=== PATIENT | male | born 1965 | race Caucasian/White ===

== ENCOUNTER → 2023-08-15 06:41 | Outpatient (REF) | payer OTHER, SELFPAY | LOC: RSP 06:41 | PROVIDERS: ATTENDING PHYSICIAN Internal Medicine; FAMILY PHYSICIAN Family Medicine | DX: R07.89 Other chest pain (principal); F17.210 Nicotine dependence, cigarettes, uncomplicated | CPT/HCPCS: 94010 ==

== ENCOUNTER 2024-09-05 17:22 | Emergency (ER) | payer OTHER, SELFPAY ==
[2024-09-05] VITALS (20 sets, daily range): BP systolic 84–106; BP diastolic 62–77; BMI 32.6
[2024-09-05 18:38] LABS: % Basophils 0.5 % (0-2); % Eosinophils 1.3 % (0-6); % Immature Granulocytes 0.7 % (0-0.5); % Lymphocytes 32.4 % (20.5-51.1); % Monocytes 9.4 % (1.7-9.3); % Neutrophils 55.7 % (42.2-75.2); Absolute Basophils 0.1 10^3/uL (0-0.2); Absolute Eosinophils 0.2 10^3/uL (0-0.7); Absolute Immature Granulocytes 0.1 10^3/uL (0-0.05); Absolute Lymphocytes 3.8 10^3/uL (1.2-3.4); Absolute Monocytes 1.1 10^3/uL (0.1-0.6); Absolute Neutrophils 6.5 10^3/uL (1.4-6.5); Hematocrit 46.8 % (39.0-52.0); Hemoglobin 17.2 g/dL (13.0-18.0); Mean Corp Hgb Conc. 36.8 g/dL (33.0-37.0); Mean Corpuscular Hgb 32.6 pg (27.0-31.0); Mean Corpuscular Volume 88.8 fL (80.0-94.0); Mean Platelet Volume 8.9 fL (7.4-10.4); Nucleated Red Blood Cells % 0 % (-); Platelet Count 287 10^3/uL (130-400); Red Blood Cell Count 5.27 10^6/uL (4.70-6.10); Red Cell Dist. Width 12.3 % (11.5-14.5); White Blood Cell Count 11.6 10^3/uL (4.8-10.8)
--- NOTE | 2024-09-05 18:45 | ED.GENMED ---
History of Present Illness
<Ranjana Galindo PA-C - Last Filed: 09/06/24 09:30>
General
Chief Complaint: Heart Rate Problem
Source: patient
Exam Limitations: none
Time Seen by Provider: 09/05/24 18:01
History of Present Illness
History of Present Illness:
59yoM with a history of atrial fibrillation, hypertension, and hyperlipidemia presenting for evaluation palpitations. Symptoms began about 48 hours ago. He states he suddenly felt like his heart was racing and his heart rate was elevated around
150. He states he is back in A-fib. He was taken off of his Eliquis about a year ago and started to take baby aspirin daily. He has been speaking with his PCP and he was restarted on Eliquis yesterday and has taken 2 doses thus far. His PCP
should not be in A-fib long and was sent to the ED for evaluation. Patient does report some episodes of indigestion today while walking. He is also having intermittent lightheadedness but denies any syncope. No shortness of breath.
Past History
<Ranjana Galindo PA-C - Last Filed: 09/06/24 09:30>
Past History
ED Past Medical History: Arrthythmia, HTN and Hypercholesterolemia; Negative CVA
ED Past Surgical History: Other (Deviated septum surgery, wisdom tooth removal)
Social History
Tobacco: Smoker
Alcohol: None
Drug: None
Personal:
Living: with family
Employment: Employed
Family History
Family History: Other (Noncontributory)
Phy Exam
<Ranjana Galindo PA-C - Last Filed: 09/06/24 09:30>
General Physical Exam
General Presentation: well appearing and no apparent distress
General age: appears stated age
General Skin: warm and dry
General Habitus: normal
General Mental: alert
ENT Exam
ENT Exam: normocephalic
Cardiovascular Exam
Cardiovascular Exam: no edema and irregularly irregular
Pulmonary Exam
Pulmonary Exam: lungs clear, no respiratory distress, no rales, no crackles, no rhonchi and no wheezing
Neurological Exam
Neurological Exam: alert
Smiley Coma Scale
Eye Opening: Spontaneous
Verbal Response: Oriented
Motor Response: Obeys Commands
GCS Total Score: 15
Skin Exam
Skin Exam: normal color and warm/dry
Psychiatric Exam
Psychiatric Exam: normal mood/affect
Course
<Ranjana Galindo PA-C - Last Filed: 09/06/24 09:30>
Orders/Labs/Results
Orders:
Orders
09/05/24 17:24
Electrocardiogram (*1) Urgent
Reason for Study: Atrial Fibrillation
09/05/24 17:25
EKG- Treatment ONCE
09/05/24 18:26
CMP [Comprehensive Metabolic Panel] Urgent
Complete Blood Count/With Diff Urgent
TSH Reflex To Free T4 Urgent
Troponin I Urgent
0.9% Sodium Chloride 1000 ml [Nss] 1,000 ml IV BOLUS
Diltiazem HCl [Cardizem] 10 mg IV NOW STA
09/05/24 18:28
Apixaban [Eliquis] 5 mg PO ONCE ONE
09/05/24 18:41
Diltiazem 125 mg/125 ml Nss [Cardizem] 125 mg in 125 ml .ROUTE .STK-MED
09/05/24 18:45
Diltiazem 125 mg/125 ml Nss [Cardizem] 125 mg in 125 ml IV PER PROTOCOL
Initial dose in mg/hr, then titrate:: 5
Titrate to keep:: Heart rate 80-100 bpm
Titrate by mg/hr:: 5 mg/hr
Frequency of titrations (minutes):: 15
Maximum dose in mg/hr:: 15
09/05/24 20:24
Metoprolol [Lopressor] 25 mg PO NOW STA
Abnormal Lab Results
09/05/24
18:26
WBC 11.6 H 10^3/uL
(4.8-10.8)
MCH 32.6 H pg
(27.0-31.0)
Abs Immat Gran (auto) 0.1 H 10^3/uL
(0-0.05)
Absolute Lymphs (auto) 3.8 H 10^3/uL
(1.2-3.4)
Absolute Monos (auto) 1.1 H 10^3/uL
(0.1-0.6)
Immature Gran % 0.7 H %
(0-0.5)
Monocytes % 9.4 H %
(1.7-9.3)
Chloride 109 H mmol/L
(98-107)
BUN 21 H mg/dl
(9-20)
Total Protein 6.1 L g/dl
(6.3-8.2)
09/05/24 18:26
09/05/24 18:26
Vital Signs
Initial and Last Documented VS:
Initial Vital Signs
Temp Pulse Resp BP Pulse Ox
98.5 F 95 18 100/72 97
09/05/24 17:44 09/05/24 17:44 09/05/24 17:44 09/05/24 17:44 09/05/24 17:44
Last Documented Vital Signs
Temp Pulse Resp BP Pulse Ox
98.5 F 78 28 103/63 95
09/05/24 17:44 09/05/24 20:31 09/05/24 20:30 09/05/24 20:31 09/05/24 20:30
Philiplt;Kenneth Huerta MD - Last Filed: 09/05/24 21:26>
Orders/Labs/Results
Orders:
Orders
09/05/24 17:24
Electrocardiogram (*1) Urgent
Reason for Study: Atrial Fibrillation
09/05/24 17:25
EKG- Treatment ONCE
09/05/24 18:26
CMP [Comprehensive Metabolic Panel] Urgent
Complete Blood Count/With Diff Urgent
TSH Reflex To Free T4 Urgent
Troponin I Urgent
0.9% Sodium Chloride 1000 ml [Nss] 1,000 ml IV BOLUS
Diltiazem HCl [Cardizem] 10 mg IV NOW STA
09/05/24 18:28
Apixaban [Eliquis] 5 mg PO ONCE ONE
09/05/24 18:41
Diltiazem 125 mg/125 ml Nss [Cardizem] 125 mg in 125 ml .ROUTE .STK-MED
09/05/24 18:45
Diltiazem 125 mg/125 ml Nss [Cardizem] 125 mg in 125 ml IV PER PROTOCOL
Initial dose in mg/hr, then titrate:: 5
Titrate to keep:: Heart rate 80-100 bpm
Titrate by mg/hr:: 5 mg/hr
Frequency of titrations (minutes):: 15
Maximum dose in mg/hr:: 15
09/05/24 20:24
Metoprolol [Lopressor] 25 mg PO NOW STA
Abnormal Lab Results
09/05/24
18:26
WBC 11.6 H 10^3/uL
(4.8-10.8)
MCH 32.6 H pg
(27.0-31.0)
Abs Immat Gran (auto) 0.1 H 10^3/uL
(0-0.05)
Absolute Lymphs (auto) 3.8 H 10^3/uL
(1.2-3.4)
Absolute Monos (auto) 1.1 H 10^3/uL
(0.1-0.6)
Immature Gran % 0.7 H %
(0-0.5)
Monocytes % 9.4 H %
(1.7-9.3)
Chloride 109 H mmol/L
(98-107)
BUN 21 H mg/dl
(9-20)
Total Protein 6.1 L g/dl
(6.3-8.2)
09/05/24 18:26
09/05/24 18:26
Vital Signs
Initial and Last Documented VS:
Initial Vital Signs
Temp Pulse Resp BP Pulse Ox
98.5 F 95 18 100/72 97
09/05/24 17:44 09/05/24 17:44 09/05/24 17:44 09/05/24 17:44 09/05/24 17:44
Last Documented Vital Signs
Temp Pulse Resp BP Pulse Ox
98.5 F 78 28 103/63 95
09/05/24 17:44 09/05/24 20:31 09/05/24 20:30 09/05/24 20:31 09/05/24 20:30
<Ranjana Galindo PA-C - Last Filed: 09/06/24 09:30>
MDM/Problems Addressed
Differential Diagnosis Includes:
59yoM here with palpitations x 2 days. Feels like he is back in afib. Hx of afib. Off Eliquis x 1 year, restarted yesterday. C/o intermittent indigestion throughout the day. Relatively asymptomatic currently. HR in the 110s during exam. He is well
appearing in no distress. Differential diagnosis includes but is not limited to: atrial fibrillation, CHF, ACS
Initial ED plan: EKG obtained in triage confirms afib. Check cardiac labs and TSH. Will initiate Cardizem to see if patient converts to NSR.
<Ranjana Galindo PA-C - Last Filed: 09/06/24 09:30>
*EKG
Interpreted by ED Provider?: Yes
EKG Intrepretation Date: 09/05/24
Heart Rate: 106
Rate: tachycardiac
Rhythm: a-fib
Napoleon: normal axis
Interval: normal interval
QRS Pattern: normal QRS
Ischemia: no ischemia
*Critical Care Note
Total Time (30-74mins, 75-104mins- exclusive of procedures): Not Applicable
<Ranjana Galindo PA-C - Last Filed: 09/06/24 09:30>
Update Note
Update Note:
Labs overall unremarkable including normal electrolytes, TSH, and troponin. HR in the 70s on reassessment and he remains in afib. Case discussed with Dr. Blackwell who evaluated patient at bedside. No need for cardioversion at this time. Plan is to
increase metoprolol from 25mg daily to 25mg BID and have close outpatient f/u with his cardiology team. Patient in agreement with plan. ED return precautions reviewed. He was discharged in stable condition.
ED Attending Note
<Ranjaan Galindo PA-C - Last Filed: 09/06/24 09:30>
-
Portions of this chart may have been created with voice recognition software.� Occasional wrong word or��sound alike� substitutions may have occurred due to the inherent limitations of voice recognition software.
<Kenneth Huerta MD - Last Filed: 09/05/24 21:26>
ED Attending Note
Patient seen and examined by attending physician: Yes
ED Attending Note:
Patient presents to ED secondary to 3-day history of palpitations, with elevated heart rate noted on his Apple Watch. This afternoon, while he was walking, he experienced 'heartburn' sensation, which resolved shortly. Since then, patient has had
intermittent symptoms of palpitations with heartburn sensation. Denies chest pain. Denies dizziness. Denies nausea or vomiting. Denies diaphoresis. Patient's medical history is significant for previous history of atrial fibrillation, requiring
cardioversion as well as being on Eliquis, which has been discontinued. Denies recent illness. Denies recent travel. Denies leg pain or swelling. Denies back pain.
Physical Exam
General: no apparent distress, not acutely ill. afebrile. overweight
Head: nc/at. eomi
Neck: supple. normal range of motion.
Heart: irregularly irregular. tachycardic. no murmur.
Lungs: no acute respiratory distress. clear bilaterally
Abdomen: normal bowel sounds. not tender.
Neuro: alert and oriented x 3. no focal neurological deficits
Skin: no rash
Psychiatric: well kept. interactive and cooperative
Extremities: no edema. no calf tenderness.
History, exam, and EKG, consistent with recurrent rapid atrial fibrillation.
Blood work within normal limits. Heart rate improved with treatment via IV fluids, Cardizem bolus followed by Cardizem infusion.
Patient evaluated at bedside by , cardiology. Feels that patient does not require cardioversion at this time. Recommends increasing metoprolol to twice daily, along with urgent outpatient follow-up, for formal EP study. Until then,
patient will continue Eliquis. Patient expressed understanding at time of discharge. Cardiology office will contact patient at home with an appointment.
Critical care statement: A total of 40 minutes of critical care time was provided for this patient. This includes management of unstable vital signs, evaluation of the patient at bedside, reviewing the patient's pertinent medical records, discussion
with consultants, review of old EKGs and review of pertinent medical records. This time with separate from time utilized to perform the aforementioned documented procedures
Discharge Plan
Departure
Patient Disposition: Home (Routine Discharge)
Date of Disposition: 09/05/24
Time of Disposition: 20:23
Patient with high blood pressure during this ER visit?: No
Discharge Problem:
Atrial fibrillation
Instructions: Atrial Fibrillation (DC)
Prescriptions:
No Action
tamsulosin 0.4 MG capsule
0.4 mg PO QPM
lisinopril 20 MG tablet
20 mg PO BID
atorvastatin 40 MG tablet
40 mg PO QPM Qty: 90 3RF
aspirin 81 MG tablet,delayed release (DR/EC)
81 mg PO DAILY Qty: 30 0RF
fenofibrate nanocrystallized 48 mg Tablet
48 mg PO DAILY
Referrals:
Anand Blackwell MD [Active] -
Activity Restrictions/Additional Instructions:
Increase metoprolol to twice a day. Continue taking Eliquis.
Please follow-up closely with your licensed electrician. Return to the ER with any new or worsening symptoms including uncontrolled heart rate.
Interventions
Interventions:
*Risk Screen - Suicide Last Done: 09/05/24 17:44
*General Assessment Last Done: 09/05/24 18:17
*Neglect/Abuse Screening Last Done: 09/05/24 17:44
*ED- Fall Risk Assessment Last Done: 09/05/24 18:17
*ED COVID-19 Vaccine History Last Done: 09/05/24 17:44
*Nursing Disposition Last Done: 09/05/24 20:42
ED- Pulmonary Assessment Last Done: 09/05/24 18:17
ED- Cardiac Assessment Last Done: 09/05/24 18:17
Discharge Date and Time
Discharge Date/Time: 09/05/24 20:43
Print Language: CAPE VERDEAN
[2024-09-05] MEDS: ELIQUIS 5 MG PO (18:46)
[2024-09-05] MEDS: NSS 1000 IV (18:46)
[2024-09-05] MEDS: CARDIZEM 10 MG IV (18:47)
[2024-09-05] MEDS: CARDIZEM 125 IV (18:47)
[2024-09-05 19:01] LABS: ALT (SGPT) 25 U/L (0-50); AST (SGOT) 21 U/L (17-59); Albumin 3.8 g/dl (3.5-5.0); Alkaline Phosphatase 43 U/L (38-126); Blood Urea Nitrogen 21 mg/dl (9-20); Calcium 9.5 mg/dl (8.4-10.2); Carbon Dioxide 24 mmol/L (22-30); Chloride 109 mmol/L (98-107); Estimated Creatinine Clearance 104 ml/min; Glucose 84 mg/dl (70-99); Sodium 141 mmol/L (135-145); Total Bilirubin 0.8 mg/dl (0.2-1.3); Total Protein 6.1 g/dl (6.3-8.2); eGFR > 60.00
[2024-09-05 19:05] LABS: Troponin I < 0.012 ng/ml
[2024-09-05 19:31] LABS: TSH Reflex To Free T4 2.09 uIU/ml (0.47-4.68)
[2024-09-05] MEDS: LOPRESSOR 25 MG PO (20:31)
== END 2024-09-05 20:43 | disposition home or self-care (01) ==
LOC: EMR 17:22
PROVIDERS: EMERGENCY PHYSICIAN Emergency Medicine; FAMILY PHYSICIAN Family Medicine
DX: I48.91 Unspecified atrial fibrillation (principal); I10 Essential (primary) hypertension; E78.00 Pure hypercholesterolemia, unspecified; F17.200 Nicotine dependence, unspecified, uncomplicated; Z79.01 Long term (current) use of anticoagulants
CPT/HCPCS: 99283; 96374; 96376; 96361; 80053; 84443; 84484; 85025; 93005

== ENCOUNTER → 2024-09-27 08:14 | Outpatient (REF) | payer OTHER, SELFPAY | LOC: HWRCS 08:14 | PROVIDERS: ATTENDING PHYSICIAN Internal Medicine Cardiovascular Disease; FAMILY PHYSICIAN Family Medicine | DX: I48.0 Paroxysmal atrial fibrillation (principal) | CPT/HCPCS: 93306 ==

== ENCOUNTER 2024-10-29 06:07 | Day surgery (SDC) | payer OTHER, SELFPAY ==
[2024-10-15 10:20] VITALS: BMI 33.8
[2024-10-15 11:03] LABS: % Basophils 0.9 % (0-2); % Eosinophils 1.9 % (0-6); % Immature Granulocytes 0.3 % (0-0.5); % Lymphocytes 23.2 % (20.5-51.1); % Monocytes 9.4 % (1.7-9.3); % Neutrophils 64.3 % (42.2-75.2); Absolute Basophils 0.1 10^3/uL (0-0.2); Absolute Eosinophils 0.2 10^3/uL (0-0.7); Absolute Lymphocytes 2.2 10^3/uL (1.2-3.4); Absolute Monocytes 0.9 10^3/uL (0.1-0.6); Absolute Neutrophils 6.1 10^3/uL (1.4-6.5); Hematocrit 47.4 % (39.0-52.0); Hemoglobin 17.3 g/dL (13.0-18.0); Mean Corp Hgb Conc. 36.5 g/dL (33.0-37.0); Mean Corpuscular Hgb 32.6 pg (27.0-31.0); Mean Corpuscular Volume 89.4 fL (80.0-94.0); Mean Platelet Volume 9.5 fL (7.4-10.4); Nucleated Red Blood Cells % 0 % (-); Platelet Count 286 10^3/uL (130-400); Red Cell Dist. Width 12.6 % (11.5-14.5); White Blood Cell Count 9.5 10^3/uL (4.8-10.8)
[2024-10-15 11:38] LABS: ALT (SGPT) 28 U/L (0-50); AST (SGOT) 25 U/L (17-59); Albumin 4.8 g/dl (3.5-5.0); Alkaline Phosphatase 43 U/L (38-126); Blood Urea Nitrogen 14 mg/dl (9-20); Calcium 9.3 mg/dl (8.4-10.2); Carbon Dioxide 24 mmol/L (22-30); Chloride 109 mmol/L (98-107); Estimated Creatinine Clearance 103 ml/min; Glucose 89 mg/dl (70-99); Potassium 4.3 mmol/L (3.5-5.1); Sodium 140 mmol/L (135-145); Total Bilirubin 0.7 mg/dl (0.2-1.3); eGFR > 60.00
[2024-10-29] VITALS (12 sets, daily range): BP systolic 102–132; BP diastolic 72–91
[2024-10-29 08:41] LABS: ACT-LR - POC 335 Seconds (116-155)
[2024-10-29 09:02] LABS: ACT-LR - POC 334 Seconds (116-155)
--- NOTE | 2024-10-29 09:28 | ITS.CL.ABL ---
Train Control Electronic Technician - Ablation
Ablation
Procedure Report:
AFIB ablation:
Mr. Justin is a very pleasant 59 yr old gentleman with medical history significant for symptomatic paroxysmal atrial fibrillation is here in the EP lab for atrial fibrillation ablation
Date of Procedure:
10/29/2024
Indications:
Symptomatic paroxysmal atrial fibrillation
Pre-Operative Diagnosis:
Paroxysmal atrial fibrillation
Post-Operative Diagnosis:
Paroxysmal atrial fibrillation
Procedure Performed:
Atrial fibrillation ablation with wide area circumferential ablation (WACA) approach for pulmonary vein isolation
Performing Physician:
Anand Blackwell MD
Assistants:
EP staff
Anesthesia:
See anesthesia records
Detailed Description of the Procedure:
Written informed consent was obtained from the patient after a full explanation of the risks and benefits of the procedure including the risks of sedation and anesthesia.
The patient was brought to the electrophysiology laboratory in stable condition in fasting state. Continuous electrocardiographic and hemodynamic monitoring was initiated.
The initial rhythm was sinus rhythm.
The procedure site was meticulously prepared with surgical scrub and allowed to dry with no pooling. Sterile draping was applied to cover the procedure site. The image intensifier was draped with sterile bag and positioned over the patient. After
infusion of local anesthetic, vascular access was obtained under ultrasound guidance and sheaths were placed over guide wire as detailed below.
The images of the ultrasound of the femoral vessels were stored in patient chart.
Sheath and Catheter Placement:
In the right femoral vein, a 10-Tristanian sheath was placed under ultrasound guidance for use during the ablation procedure. In the right femoral vein, another 9-Fr sheath was placed for use during intracardiac echo procedure.
The sheaths were upgraded as needed during the case. Intracardiac catheters were positioned using direct fluoroscopic guidance.� ICE catheter was placed in RA. The following catheters / sheaths were placed
Sheaths:
��������� Agilis sheath in right femoral vein upgraded from 10Fr in right femoral vein
��������� 9Fr in right femoral vein
Catheters:
��������� The Affera Sphere 9 catheter -bidirectional D/F� - at locations of HRA, LA and LV.
��������� ICE catheter -AccuNav -� at locations of RA, SVC, and RV.
Heparin was initiated after the access was obtained.
Intracardiac ECHO:
An 8-Tristanian AcuNav intracardiac ECHO (ICE) probe was advanced through the 9-Tristanian sheath in the left femoral vein into the right atrium under fluoroscopic and ICE ultrasound image guidance and a baseline ECHO study was performed. The left atrial
size was mildly dilated. There was trace tricuspid regurgitation. The aortic valve was grossly normal. There was normal left ventricular size and function. There is a trace pericardial effusion. The LAWSON has baseline normal velocities. The pulmonary
had good flow identified.
During the procedure, ICE was used for monitoring of complications, guidance of trans-septal puncture, monitor the catheter position and tracking ablation lesions. No change in the pericardial space noted throughout the procedure.
Trans-septal Puncture:
Heparin was initiated and infused to maintain appropriate ACT. A J-tipped guidewire was advanced through into the superior vena cava under fluoroscopic and ICE guidance. The Agilis sheath with BRK needle was advanced into the superior vena cava over
the guidewire. The apparatus was withdrawn until it was in contact with the fossa ovalis. The position was adjusted based on fluoroscopy and ultrasound images from ICE. Under fluoroscopic, hemodynamic and ICE ultrasound guidance, left atrium was
cannulated by advancing the needle. Once atrial septum was cannulated, the needle was pulled back and the guide wire was advanced through the needle into the left atrium. The guide wire was advanced into the left superior pulmonary vein. Both the
sheath and the dilator was advanced into the left atrium. The dilator with the needle was withdrawn. Blood was aspirated from the Agilis sheath and arterial blood confirmed. The sheath was flushed. Saline injection noted into the left atrium on ICE.
The waveform of the LA pressure was recorded. The mapping catheter was advanced in the Agilis sheath into the left pulmonary vein.
3D Electroanatomic Mapping:
Using the Sphere 9 Affera catheter advanced through Agilis sheath into the left atrium, an electroanatomic map (EAM) of the left atrium was created using [employer]� mapping system with Prism-1 software. The map was used for localization of catheter
position and tacking of ablation lesions. The EAM of the left atrium showed a total of 4 PVs with a two left and two right sided pulmonary veins with all electrically connected to the body the LA. It showed no significant scar on the posterior wall
of the LA. The LA was dilated in size.
Following the EAM, preparation were made for ablation.
Ablation:
Ablation # 2: Pulmonary vein Isolation:
Glycopyrrolate 0.2 mg was given prior to the placement of ablation.
Pulsed field ablation was performed using an open irrigation, bidirectional, contact sensing, dual energy ablation catheter (Your Tributea sphere -9) by completing the circumferential lesions around the left and right pulmonary veins achieving pulmonary
vein isolation.
Confirmation of the PVI and bidirectional block:
Following achievement of entrance block at the pulmonary veins, pacing from the Sphere 9 affera catheter in each of the four veins at 20 milliamps for 4 milliseconds showed entrance and exit block.
The LA was mapped with The Your Tributea� mapping system with Prism-1 software in sinus rhythm confirming the line of block at the ablation lesions lines.
�
EP study:
Sinus Node Function: The sinus node functions are within acceptable normal range.
Atrioventricular Jenny Function: �Normal AV conduction noted with normal AV jenny conduction time.
Procedure End
ICE study was done again that showed no epicardial accumulation. No complications noted.
Following the completion of the EP study, catheters were removed. Protamine 30 mg was given at the end of the procedure and ACT was checked repeatedly. The sheaths were removed and hemostasis achieved with Figure of 8 suture and manual compression
after acceptable ACT is achieved.
Left atrial Pressure:
Pre-Procedure: Mean LA pressure was 10mmHg
Post-Procedure: Mean LA pressure was 11mmHg
Post-Procedure: Mean RA pressure was 6mmHg
Estimated Blood loss:
<10 cc
Specimens Removed:
None.
Implants / Devices:
None
Urine output:
None
Packs / Drains/ Tubes:
None
Instrument / Sponge Count Correct:
Yes
Complications of the Procedure:
None
Condition of Patient at Time of Transfer:
Hemodynamically stable with no neurological or vascular compromise.
Summary:
��������� Successful atrial fibrillation ablation with circumferential bidirectional line of block at pulmonary vein antra (Pulmonary vein isolation)
Figures from the Procedure:
Figure 1: The electroanatomic mapping (EAM) of the left atrium with bipolar voltage (purple indicates normal electrical activity with red as no myocardial muscle electric activity indicating a line of block or scar.
[2024-10-29] MEDS: ANESTHETIC LOZENGE 1 LOZENGE PO (13:34)
--- NOTE | 2024-10-29 14:07 | W.PN.UPDATE ---
Update Note
Progress Note Update
Pt seen post PFA. Right groin site without ht/bleeding, oob ambulating, urinating without difficulty. Post EKG NSR 67, no acute changes. Resume eliquis tonight at usul time. Followup at [facility] as scheduled. Home today if groin site/tele remain stable.
== END 2024-10-29 14:15 | disposition home or self-care (01) ==
LOC: CATH 06:07
PROVIDERS: ATTENDING PHYSICIAN Internal Medicine Cardiovascular Disease; FAMILY PHYSICIAN Family Medicine; OTHER PHYSICIAN Internal Medicine
DX: I48.0 Paroxysmal atrial fibrillation (principal); E66.9 Obesity, unspecified; E78.5 Hyperlipidemia, unspecified; G47.33 Obstructive sleep apnea (adult) (pediatric); I10 Essential (primary) hypertension; I25.10 Atherosclerotic heart disease of native coronary artery without angina pectoris; K76.0 Fatty (change of) liver, not elsewhere classified; N40.0 Benign prostatic hyperplasia without lower urinary tract symptoms; Z72.0 Tobacco use; Z79.01 Long term (current) use of anticoagulants; Z79.899 Other long term (current) drug therapy; Z98.890 Other specified postprocedural states; Z79.85 Long-term (current) use of injectable non-insulin antidiabetic drugs; Z68.33 Body mass index [BMI] 33.0-33.9, adult
CPT/HCPCS: C1769; C1733; C1766; C1894; C1892; C1759; 36415; 80053; 85025; 85347; 86850; 86900; 86901; 93005; 93656

== ENCOUNTER → 2024-12-09 14:41 | Outpatient (REF) | payer OTHER, SELFPAY | LOC: HWRAD 14:41 | PROVIDERS: ATTENDING PHYSICIAN Urology; FAMILY PHYSICIAN Family Medicine | DX: N20.0 Calculus of kidney (principal) | CPT/HCPCS: 74176 ==

== ENCOUNTER → 2025-02-03 15:54 | Outpatient (REF) | payer OTHER, SELFPAY | LOC: RAD 15:54 | PROVIDERS: ATTENDING PHYSICIAN Nurse Practitioner Adult Health; FAMILY PHYSICIAN Family Medicine | DX: N20.0 Calculus of kidney (principal); R31.0 Gross hematuria | CPT/HCPCS: 74178; Q9967 ==

== ENCOUNTER → 2025-03-04 09:58 | Outpatient (REF) | payer OTHER, SELFPAY | LOC: RAD 09:58 | PROVIDERS: ATTENDING PHYSICIAN Nurse Practitioner Adult Health; FAMILY PHYSICIAN Family Medicine | DX: N40.0 Benign prostatic hyperplasia without lower urinary tract symptoms (principal) | CPT/HCPCS: 76872 ==